=== PATIENT | female | born 1955 | race Caucasian/White ===

== ENCOUNTER 2021-08-21 06:29 | Day surgery (SDC) | payer MEDICARE, OTHER ==
[~2021-08-21] VITALS: Ht 165.1 cm; Wt 87.1 kg
[~2021-08-21 06:29] MED LIST: ADVAIR 250-501 EACH INH; ASPIR-LOW81 MG PO; ATORVASTATIN CA10 MG PO; HYDROCODON-ACE1 EA11 PO; IBU800 MG PO; IPRAT-ALBUT 0.5-3 ML INH; NARCAN4 MG NAS; PROAIR HFA8.5 GM INH; SENNA LAX8.6 MG PO; TRELEGY ELLIPT1 EACH INH; VITAMIN D31000 UNIT PO; VITAMIN E200 UNI1 PO
--- NOTE | 2021-08-22 06:43 | OR ---
[facility] [address] [place], [place] [address] Signed DATE OF OPERATION: 08/21/2021 SURGEON: Stephany Robertson MD PREOPERATIVE DIAGNOSES: 1. Personal history of colonic polyps in 2017 at age 62. 2. Diverticulosis. 3. Sister with rectal cancer diagnosed at age 65. POSTOPERATIVE DIAGNOSES: 1. Minimal to moderate external hemorrhoids. 2. Minimal to moderate sigmoid diverticulosis. 3. 4 mm polyp at 8 cm. 4. 8 mm pedunculated polyp at 25 cm (snare). 5. 4 mm polyp at 20 cm/sigmoid colon. 6. Base of polyp at 25 cm. 7. 3 mm polyp proximal right colon. 8. 4 mm polyp mid transverse colon. 9. 4 mm polyps x2 at 15 cm/rectum. PROCEDURES: Colonoscopy, snare polypectomy with hot biopsy. ESTIMATED BLOOD LOSS: None. INDICATIONS: Yanci is a 66-year-old female, asked to see me for a followup colonoscopy. She underwent her initial colonoscopy in [address] Reed. She had rectal bleeding at that time. She had a routine adenomatous polyp removed from the splenic flexure. She was said to have diverticulosis. Apparently, she used a large amount of Versed and fentanyl for the procedure. However, she did not recall that procedure. She wanted to proceed with Versed and fentanyl once again. She told me her sister had been diagnosed with rectal cancer at age 65. Unfortunately at age 71. She is undergoing chemo and radiation therapy. Yanci has no lower GI complaints currently. I gave her a pamphlet on colonoscopy and we looked at that together along with the risks including, but not limited to gas bloating, crampy abdominal pain, bleeding, perforation requiring surgery, and missed diagnosis. Again, she wanted to proceed with Versed and fentanyl. She had expressed understanding and wished to proceed. Electronically Signed By: STEPHANY ROBERTSON MD 08/22/21 0643 PATIENT NAME: YANCI KHAN OPERATIVE REPORT DATE OF : 59 REPORT #: [id number] PHYSICIAN: STEPHANY ROBERTSON MD PCP: CAS WEINSTEIN MD REPORT IS CONFIDENTIAL AND NOT TO BE RELEASED WITHOUT AUTHORIZATION [facility] [address] [place], [place] [address] Signed PROCEDURE NOTE: Yanci was taken into our endoscopy suite and placed in the left lateral decubitus position. She was given a total of 10 mg of Versed and 200 mcg of fentanyl. She does have minimal to moderate external hemorrhoids. She has good sphincter tone. No masses. The adult colonoscope was introduced and advanced under direct visualization of camera. It took some extra sedation and abdominal compression in order to get past the hepatic flexure and down into the cecum itself. Her prep was okay. However, she probably would be yanez to take some additional prep in the future. We could see the appendiceal orifice and the ileocecal valve. The scope was then slowly withdrawn. The above-mentioned polyps were removed with the help of hot biopsy forceps. We did use the snare and hot biopsy forceps at 25 cm. She does have diverticula in the sigmoid colon. They were moderate in size, few to moderate in number, and scattered about. Once in the rectum, the scope was then retroflexed and there was really no additional pathology noted above the anal canal. After this, the gas was suctioned out and colonoscope removed. Yanci tolerated the procedure quite well. RECOMMENDATIONS: I will see Yanci back in my office in 7 to 14 days to review her results. She might consider some additional prep in the future. Stephany Robertson MD ALB/MODL /[id number] cc: MD Stephany Mercedes MD Copies: CAS WEINSTEIN MD, ANDREW L MD ~ Electronically Signed By: STEPHANY ROBERTSON MD 08/22/21 0643 PATIENT NAME: YANCI KHAN OPERATIVE REPORT DATE OF : 59 REPORT #: [id number] PHYSICIAN: STEPHANY ROBERTSON MD PCP: CAS WEINSTEIN MD REPORT IS CONFIDENTIAL AND NOT TO BE RELEASED WITHOUT AUTHORIZATION
--- NOTE | 2021-08-22 16:50 | PATH ---
[facility] [address] [place], [place] [address] Signed SPECIMEN(S): A RECTAL POLYP AT 8 CM SPECIMEN(S): B COLON POLYP AT 25 CM SPECIMEN(S): C SIGMOID POLYP AT 20 CM SPECIMEN(S): D BASE OF POLYP AT 25 CM SPECIMEN(S): E PROXIMAL RIGHT COLON POLYP SPECIMEN(S): F MID TRANSVERSE COLON POLYP SPECIMEN(S): G RECTAL POLYP AT 15 CM X 2 SPECIMEN SOURCE: A. RECTAL POLYP AT 8 CM B. COLON POLYP AT 25 CM C. SIGMOID POLYP AT 20 CM D. BASE OF POLYP AT 25 CM E. PROXIMAL RIGHT COLON POLYP F. MID TRANSVERSE COLON POLYP G. RECTAL POLYP AT 15 CM X 2 CLINICAL HISTORY: Colonoscopy. Personal history of colon polyps; diverticulosis; sister history of rectal CA/colon polyps; diverticulosis; external hemorrhoids. MICROSCOPIC DESCRIPTION: Histologic sections of all submitted blocks are examined by light microscopy. These findings, together with the gross examination, support the pathologic diagnosis. FINAL PATHOLOGIC DIAGNOSIS: A. Rectal polyp at 8 cm, polypectomy: - Hyperplastic polyp. B. Colon polyp at 25 cm, polypectomy: - Tubular adenoma with high-grade dysplasia extending close to resection margin. C. Sigmoid polyp at 20 cm, polypectomy: - Hyperplastic polyp. D. Base of polyp at 25 cm, polypectomy: - Benign colonic mucosa with some reactive changes. - Negative for dysplasia. E. Proximal right colon polyp, polypectomy: - Tubular adenoma. - Negative for high-grade dysplasia and malignancy. F. Mid transverse colon polyp, polypectomy: - Tubular adenoma. PATIENT NAME: CHANCE KHAN PATHOLOGY DATE OF : 59 REPORT #: [id number] PHYSICIAN: DESIRE PENNINGTON PCP: CAS WEINSTEIN MD REPORT IS CONFIDENTIAL AND NOT TO BE RELEASED WITHOUT AUTHORIZATION [facility] [address] [place], [place] [address] Signed - Negative for high-grade dysplasia and malignancy. G. Rectal polyp at 15 cm, polypectomy: - Hyperplastic polyp. DDF:gutierrez:[id number] GROSS DESCRIPTION: Seven specimens are received in seven containers, labeled "MO." A. The specimen, labeled "MO, 1," and designated on the requisition "rectal polyp at 8 cm," is received in formalin and consists of two rayo soft tissue fragments that measure 0.3 cm in greatest dimension. The specimen is entirely submitted in cassette (A1). B. The specimen, labeled "MO, 2," and designated on the requisition "colon polyp at 25 cm," is received in formalin and consists of one polypoid rayo soft tissue fragment that measures 1.0 cm in greatest dimension. The specimen is inked black, trisected, and entirely submitted in cassette (B1). C. The specimen, labeled "MO, 3," and designated on the requisition "sigmoid polyp at 20 cm," is received in formalin and consists of two rayo soft tissue fragments that measure 0.3 cm in greatest dimension. The specimen is entirely submitted in cassette (C1). D. The specimen, labeled "MO, 4," and designated on the requisition "base of colon polyp at 25 cm," is received in formalin and consists of one rayo soft tissue fragment that measures 0.3 cm in greatest dimension. The specimen is entirely submitted in cassette (D1). E. The specimen, labeled "MO, 5," and designated on the requisition "proximal right colon polyp," is received in formalin and consists of one rayo soft tissue fragment that measures 0.3 cm in greatest dimension. The specimen is entirely submitted in cassette (E1). F. The specimen, labeled "MO, 6," and designated on the requisition "mid transverse colon polyp," is received in formalin and consists of two rayo soft tissue fragments that measure 0.3 cm in greatest dimension. The specimen is entirely submitted in cassette (F1). G. The specimen, labeled "MO, 7," and designated on the requisition "rectal polyp at 15 cm x 2," is received in formalin and consists of two rayo soft tissue fragments that measure 0.3 cm in greatest dimension. The specimen is entirely submitted in cassette (G1). AT (under the direct supervision of a pathologist) The Gross Description was prepared using a voice recognition system. The report was reviewed for accuracy; however, sound-alike word errors, addition and/or deletions may occur. If there is any PATIENT NAME: CHANCE KHAN PATHOLOGY DATE OF : 59 REPORT #: [id number] PHYSICIAN: DESIRE PATHOLOGY PCP: CAS WEINSTEIN MD REPORT IS CONFIDENTIAL AND NOT TO BE RELEASED WITHOUT AUTHORIZATION [address] [address] Signed question about this report, please contact Client Services. PERFORMING LABORATORY: The technical component was performed by [facility], [address] [place] [id number] (Blocking Machine Tender: Tete Lemus MD; CLIA# [id number]). Professional interpretation was performed by [facility], [facility], [address] [place] [address] (CLIA# [id number]). Diagnostician: Cm Oro DO Pathologist Electronically Signed 08/22/2021 Copies: ~ PATIENT NAME: CHANCE KHAN PATHOLOGY DATE OF : 59 REPORT #: [id number] PHYSICIAN: DESIRE PENNINGTON PCP: CAS WEINSTEIN MD REPORT IS CONFIDENTIAL AND NOT TO BE RELEASED WITHOUT AUTHORIZATION
== END 2021-08-21 09:08 | disposition home or self-care (01) ==
LOC: OPS 06:29 → DS 06:29 → OPS 07:30 → DS 07:30 → OPS 09:08
PROVIDERS: ATTEND Colon & Rectal Surgery
PROC: 0DBN8ZX Excision of Sigmoid Colon, Via Natural or Artificial Opening Endoscopic, Diagnostic (ICD-10-PCS; 2021-08-21)
PROC: 0DBP8ZX Excision of Rectum, Via Natural or Artificial Opening Endoscopic, Diagnostic (ICD-10-PCS; 2021-08-21)
PROC: 0DBN8ZX Excision of Sigmoid Colon, Via Natural or Artificial Opening Endoscopic, Diagnostic (ICD-10-PCS; 2021-08-21)
PROC: 0DBP8ZX Excision of Rectum, Via Natural or Artificial Opening Endoscopic, Diagnostic (ICD-10-PCS; principal; 2021-08-21 07:30)
DX: D12.6 Benign neoplasm of colon, unspecified (principal); K57.30 Diverticulosis of large intestine without perforation or abscess without bleeding; K64.4 Residual hemorrhoidal skin tags; K62.1 Rectal polyp; J44.9 Chronic obstructive pulmonary disease, unspecified; F17.210 Nicotine dependence, cigarettes, uncomplicated; Z80.0 Family history of malignant neoplasm of digestive organs; Z86.010 Personal history of colon polyps; Z20.822 Contact with and (suspected) exposure to COVID-19
CPT/HCPCS: 99153; G0500; J2250; J3010; J7121